=== PATIENT | female | born 2005 | race Caucasian/White ===

== ENCOUNTER 2025-07-24 09:56 | Emergency (ER) | payer SELFPAY ==
[2025-07-24 10:11] VITALS: BP 113/72; PULSE 80; RESP 18; TEMP 36.4; O2SAT 99
[2025-07-24 10:25] LABS: EDSTREPNEGPOS1 Negative (Negative)
--- NOTE | 2025-07-24 10:41 | ED.GENADULT ---
HPI - General Adult General Chief complaint: Upper Respiratory Infection Stated complaint: strep Source: patient Mode of arrival: ambulatory Limitations: no limitations History of Present Illness HPI narrative: Pt presents for evaluation of sick symptoms. Symptom onset 4 days ago. She experienced a sore throat, headache, body aches and cough. Her sister just tested positive for strep. No fever, chills, nausea, vomiting or diarrrhea. She is not taking any medication to assist with her symptoms. She does not smoke. Related Data Allergies Allergy/AdvReac Type Severity Reaction Status Date / Time No Known Allergies Allergy Verified 07/24/25 10:09 Review of Systems Review of Systems: CONSTITUTIONAL: Denies fever, chills, or sweats. EYES: Denies visual changes, redness, or discharge. ENT: Reports sore throat. Denies rhinorrhea, congestion, or otalgia. CARDIOVASCULAR: Denies chest pain, palpitations, or edema. RESPIRATORY: Reports cough. Denies dyspnea. GASTROINTESTINAL: Denies abdominal pain, nausea, vomiting, or diarrhea. GENITOURINARY: Denies dysuria or hematuria. SKIN: Denies rash or itching. MUSCULOSKELETAL: Reports body aches. NEUROLOGIC: Reports headache. Denies numbness, dizziness, or weakness. PSYCHIATRIC: Denies anxiety or depression. PMFSH Past Medical History Medical History No pertinent past medical history Surgical History Surgical History No pertinent past surgical history Family History Family History Mother Family history non-contributory Social History Social History Smoking status: Never smoker Alcohol intake: current Alcohol use details: occasional social use Substance use: never Gender identity (if verbalized by the patient): Female Spiritual care concerns: No Exam Narrative: GENERAL: Well-appearing, well-nourished, and in no acute distress. HEAD: Normocephalic, atraumatic. EYES: PERRLA and EOMI. ENT: Nares clear, no rhinorrhea or epistaxis. Mucous membranes moist. Oropharynx without tonsillar hypertrophy exudate or other lesions. Bilateral TMs pearly segundo nonbulging NECK: Supple. No adenopathy or masses. No carotid bruits or JVD CHEST: Clear to auscultation. No respiratory distress. No wheezes rales or rhonchi HEART: Regular rate and rhythm. No murmur heard. Normal peripheral pulses. ABDOMEN: Soft, nontender, nondistended, normal active bowel sounds. EXTREMITIES: Normal range of motion. No edema. SKIN: Warm, dry, no rash. NEURO: No focal deficits. Alert and oriented x3. PSYCH: Normal mood and affect. Course Course Emergency Course: This is a 20 year old female who presents for evaluation of sick symptoms. Rapid strep negative. Will send throat culture. Through shared decision making, opted to proceed with abx therapy based upon recent exposure. Will dc with amoxicillin. Increase fluid intake. Follow up with primary provider. Go to the ER for worsening symptoms. Pt in agreement with plan of care. Level of Care: Express Care Visit Vital Signs Vital signs: Vital Signs Temperature 36.4 C 07/24/25 10:11 Pulse Rate 80 07/24/25 10:11 Respiratory Rate 18 07/24/25 10:11 Blood Pressure 113/72 07/24/25 10:11 Pulse Oximetry 99 07/24/25 10:11 Oxygen Delivery Room Air 07/24/25 10:11 Temperature 36.4 C 07/24/25 10:11 Pulse Rate 80 07/24/25 10:11 Respiratory Rate 18 07/24/25 10:11 Blood Pressure 113/72 07/24/25 10:11 Pulse Oximetry 99 07/24/25 10:11 Oxygen Delivery Room Air 07/24/25 10:11 MDM Differential Diagnosis Differential Diagnosis: Strep versus COVID versus mono versus other viral pharyngitis versus peritonsillar abscess versus other Lab Data Labs: Lab Results 07/24/25 Range/Units 10:23 POC Grp A Strep Screen Negative (Negative) Discharge Plan Discharge Clinical Impression: Exposure to strep throat Patient Disposition: Home Condition: Stable Instructions: Antibiotic Form, Pharyngitis (ED) Patient Language: Turkmen Prescriptions: New amoxicillin 500 mg tablet 500 mg PO Q12H Qty: 20 0RF Follow-up/Referrals: Capo Santamaria MD [Physician, Family Practice] Time of Disposition: 10:38
== END 2025-07-24 10:39 | disposition home or self-care (01) ==
PROVIDERS: Emergency Provider Nurse Practitioner
DX: J02.9 Acute pharyngitis, unspecified (principal); R05.9 Cough, unspecified; R51.9 Headache, unspecified
CPT/HCPCS: 87081; 87880; 99213; G0463